=== PATIENT | male | born 1960 | race Caucasian/White ===

== ENCOUNTER 2017-03-15 14:37 | Emergency (ER) | payer BC ==
--- NOTE | 2017-03-15 15:48 | EDM.PDOC ---
ED HPI GENERAL MEDICAL PROBLEM - General Chief Complaint: Upper Extremity Injury/Pain Stated Complaint: LEFT SHOULDER/BACK PAIN Time Seen by Provider: 03/15/17 15:35 Source of Information: Reports: Patient History Limitations: Reports: No Limitations - History of Present Illness INITIAL COMMENTS - FREE TEXT/NARRATIVE: 56-year-old male presents to the ED with recurrent left precordial chest pains that radiate into his axillary area. States the pain is been coming and going for the last 2 years but worse the last couple of days. Denies any recent falls or injuries or previous fractured ribs to his knowledge. Aware of it when he breathes deeply. Aspirin last night seemed to help a good deal and Motrin this morning took away about 60% of the discomfort. It is more of a deep aching pain versus sharp and stabbing. He has not been recently ill with any upper respiratory tract infection or severe cough. Denies any fever or chills. Has no known heart disease or other issues. Denies cough or sputum production. Denies ever having tuberculosis. Onset: Unknown/Unsure Onset Date: 03/14/17 (More aware of the left anterior chest discomfort yesterday and back axillary discomfort this morning.) Duration: Day(s): Location: Reports: Chest (Left anterior chest and left axilla left upper back.) Quality: Reports: Ache, Burning, Dull. Denies: Sharp, Stabbing Severity: Moderate (Dull ache when not moving. Aggravated by movement.) Improves with: Reports: Rest Worsens with: Reports: Other, Movement (Deep breathing coughing movement of the left upper extremity.) Context: Denies: Activity, Exercise, Lifting, Sick Contact, Trauma, Other Associated Symptoms: Reports: Chest Pain. 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 Both seem to help somewhat.) Left Shoulder Pain Score (Numeric/FACES): 5 - Related Data Allergies Allergy/AdvReac Type Severity Reaction Status Date / Time No Known Allergies Allergy Verified 03/15/17 14:46 Home Meds: Home Meds Diclofenac Sodium [Voltaren] 50 mg PO BID #16 tab.ec 03/15/17 [Rx] Prednisone [IJD: predniSONE] 20 mg PO BID #15 tab 03/15/17 [Rx] Past Medical History Cardiovascular History: Reports: High Cholesterol Social & Family History - Family History Cardiac: Reports: Hypertension - Tobacco Use Smoking Status *Q: Never Smoker - Caffeine Use Caffeine Use: Reports: None - Recreational Drug Use Recreational Drug Use: No - Living Situation & Occupation Occupation: Employed Review of Systems - Review of Systems Review Of Systems: See Below Constitutional: Denies: Chills, Diaphoresis, Fever, Weakness, Other Eyes: Denies: No Symptoms, Blindness, Drainage, Decreased Acuity Ears: Reports: No Symptoms Nose: Reports: No Symptoms Mouth/Throat: Reports: No Symptoms Respiratory: Reports: Other (Left precordial chest pain radiating to the left exit left off and on for 2 years.). Denies: Wheezing, Pleuritic Chest Pain, Cough, Sputum, Hemoptysis Cardiovascular: Reports: Chest Pain (See history of present illness). Denies: Edema, Irregular Heart Rate, Lightheadedness, Palpitations, Syncope, Other GI/Abdominal: Reports: No Symptoms Genitourinary: Reports: No Symptoms Musculoskeletal: Reports: No Symptoms Skin: Reports: No Symptoms Neurological: Reports: No Symptoms Psychiatric: Reports: No Symptoms ED EXAM, GENERAL - Physical Exam Exam: See Below Exam Limited By: No Limitations General Appearance: Alert, WD/WN, Anxious, Mild Distress Eye Exam: Bilateral Eye: Normal Inspection Throat/Mouth: Normal Inspection, Normal Lips, Normal Oropharynx Head: Atraumatic, Normocephalic Neck: Normal Inspection, Supple, Non-Tender, Full Range of Motion. No: Carotid Bruit, Lymphadenopathy (L), Lymphadenopathy (R), Thyromegaly Respiratory/Chest: No Respiratory Distress, Lungs Clear, Normal Breath Sounds, No Accessory Muscle Use, Other (Chest wall tenderness appreciated on palpation of the fourth and fifth ribs lateral clavicular line and anterior axillary line. Pain radiates into the posterior axilla under the latissimus dorsi muscle. ) Cardiovascular: Normal Peripheral Pulses, Regular Rate, Rhythm, No Edema, No Gallop, No Murmur Peripheral Pulses: 3+: Posterior Tibial (L), Posterior Tibial (R), Dorsalis Pedis (L), Dorsalis Pedis (R) GI/Abdominal: Normal Bowel Sounds, Soft, Non-Tender, No Organomegaly, No Abnormal Bruit, No Mass, Pelvis Stable Back Exam: Vertebral Tenderness (Mild tenderness of Percocet over the seventh rib head on the left side) Extremities: Normal Inspection (. Appears to have mild rib head subluxation in this area but no other muscle spasm was identified paraspinal he.), Normal Range of Motion, Non-Tender, No Pedal Edema Neurological: Alert, Oriented, CN II-XII Intact, Normal Cognition, Normal Gait Psychiatric: Normal Affect, Anxious Skin Exam: Warm, Dry, Intact, Normal Color, No Rash EKG INTERPRETATION EKG Date: 03/15/17 Time: 16:00 Rhythm: Other (First-degree AV block.) Rate (Beats/Min): 69 P-Wave: Present (First-degree AV block.) QRS: Normal ST-T: Other (Diffuse early repolarization pattern.) EKG Interpretation Comments: Borderline ECG Course - Vital Signs Last Recorded V/S: Last Vital Signs Temp 36.4 C 03/15/17 14:47 Pulse 71 03/15/17 14:47 Resp 16 03/15/17 14:47 BP 176/96 H 03/15/17 14:47 Pulse Ox 100 03/15/17 14:47 - Orders/Labs/Meds Meds: Medications Discontinued Medications Generic Name Dose Route Start Last Admin Trade Name Freq PRN Reason Stop Dose Admin Prednisone 20 mg 03/15/17 16:53 03/15/17 17:06 Prednisone PO 03/15/17 16:54 20 mg ONETIME ONE Administration - Radiology Interpretation Free Text/Narrative:: 56-year-old male of -[place] ancestry presents to the ED with a recurrence of left upper anterior chest wall pain as well as pain rating to his left upper back. States he's had this type of discomfort off and on for the better part of 2 years and it comes and goes. Been bothering him again the last 2 days. Started left anterior chest last night radiating to the Lt axilla. Examination reveals chest wall tenderness particular a fourth and fifth ribs left anterior lateral chest wall and rib head subluxation at this T7 level in his back. The characteristic of the pain coming and going suggest a neurogenic source of pain like costochondral neuritis. Plan ECG and one view chest x-ray to be obtained. - Re-Assessments/Exams Free Text/Narrative Re-Assessment/Exam: 03/15/17 16:55: ECG showed no evidence of ischemia. First-degree AV block present with rate of 69/m with a diffuse early repolarization pattern. Chest x- ray portably reveals normal cardiac silhouette and clear lung noe. Patient reassured that chest pain is chest wall in origin. He will be treated with prednisone 20 mg twice a day for 5 days breakfast and supper and then once daily in the morning only for another 5 days. Anti-inflammatory will be Voltaren 50 mg twice a day for the next 10 days. Patient voiced expect gradual improvement over the next 72 hours. Follow-up with personal care physician if any further problems occur. We'll also seek out chiropractic manipulation of rib head subluxation at approximately T7 his left upper back. Departure - Departure Time of Disposition: 16:52 Disposition: Home, Self-Care 01 Condition: Fair Clinical Impression: Non-cardiac chest pain, Left-sided chest wall pain - Discharge Information Prescriptions: Diclofenac Sodium [Voltaren] 50 mg PO BID #16 tab.ec Prednisone [IJD: predniSONE] 20 mg PO BID #15 tab Instructions: Chest Wall Pain, [id number], Nonspecific Chest Pain, Easy-to- Read Referrals: Leilani Rodriguez DO [Primary Care Provider] - Forms: ED Department Discharge Additional Instructions: Evaluation the emergency room today in regards to left-sided precordial chest pain which radiates into the left armpit and upper back on the left side. History this pain has come and gone in the past over the last 2 years on several occasions but much worse the last 2 days. Reveals localized chest wall tenderness to ribs 4 and 5 on the left chest wall particularly in the front of the armpit or axillary area. This indicates pain is chest wall in origin. ECG revealed no signs of heart related illness. Chest x-ray is also completely normal with no abnormalities of the lungs or lung lining or the ribs themselves identified. Treatment is therefore Deltasone or prednisone 20 mg with breakfast and supper for 5 days and then once in the morning again only for 5 days. Voltaren 50 mg twice daily with breakfast and supper to relieve pain and inflammation of the chest wall. Prednisone was started in the emergency department today and you would not need another dose until tomorrow morning. You could still use ibuprofen 600 mg every 6 hours to relieve pain and inflammation essentially can grape picker her prescription for Voltaren tomorrow. Also identified a rib head that's not in the right position or what we call subluxed mildly dislocated anterior left upper back at thoracic 7 level. Suggest follow-up with a chiropractor in this regard. It is certainly call Dr. Dewey Heath`s office at [phone]. He is one of the chiropractors in [facility] that would could easily a gesture rib head and relieve your upper back pain discomfort.
[2017-03-15] MEDS ORDERED: predniSONE 20 MG Tab PO ONE (16:53)
--- NOTE | 2017-03-16 07:35 | CR ---
Chest: Portable view of the chest was obtained. Comparison: No prior chest x-ray. Heart size and mediastinum are normal. Lungs are clear. Bony structures are grossly intact. Impression: 1. Nothing acute is identified on portable chest x-ray. Diagnostic code #1
== END 2017-03-15 17:20 | disposition home or self-care (01) ==
LOC: JD.ED 14:37
DX: R07.89 Other chest pain (principal); E78.00 Pure hypercholesterolemia, unspecified
CPT/HCPCS: 71045; 93005; 99283; A9270; 93010

== ENCOUNTER 2018-07-04 15:04 | Emergency (ER) | payer BC ==
--- NOTE | 2018-07-04 15:32 | EDM.PDOC ---
ED HPI GENERAL MEDICAL PROBLEM - General Chief Complaint: Back Pain or Injury Stated Complaint: BACK PAIN Time Seen by Provider: 07/04/18 15:09 Source of Information: Reports: Patient, RN Notes Reviewed History Limitations: Reports: No Limitations - History of Present Illness INITIAL COMMENTS - FREE TEXT/NARRATIVE: Patient is a 57-year-old male who presents to the ED for the evaluation of lower back pain. The patient notes that this started roughly Thursday, this is located on the left lumbar portion of his back. He denies any radiation down his left leg at this time. He states that when he moves in a certain fashion, he has sharp shooting pains into his back like someone is stabbing him with a knife. He states that his gait and movements have become very slow so he does not aggravate the injury. The patient notes that he does do a lot of lifting at work, and is not really know how he initially injured the back. The patient took 400 mg of ibuprofen this morning, and at 12 PM today. He would rate his pain at a 8 out of 10 today. Patient states that his primary care provider is Dr. Da Silva. Left Back Pain Score (Numeric/FACES): 8 - Related Data Allergies Allergy/AdvReac Type Severity Reaction Status Date / Time No Known Allergies Allergy Verified 03/15/17 14:46 Home Meds: Home Meds Ibuprofen 600 mg PO Q6H #60 tablet 07/04/18 [Rx] Orphenadrine [Norflex] 100 mg PO BID PRN #20 tab 07/04/18 [Rx] Past Medical History Cardiovascular History: Reports: High Cholesterol - Past Surgical History GI Surgical History: Reports: Appendectomy Social & Family History - Family History Cardiac: Reports: Hypertension - Tobacco Use Smoking Status *Q: Never Smoker - Caffeine Use Caffeine Use: Reports: Tea - Recreational Drug Use Recreational Drug Use: No - Living Situation & Occupation Occupation: Employed ED ROS GENERAL - Review of Systems Review Of Systems: See Below Constitutional: Reports: No Symptoms HEENT: Reports: No Symptoms Respiratory: Reports: No Symptoms Cardiovascular: Reports: No Symptoms Endocrine: Reports: No Symptoms GI/Abdominal: Reports: No Symptoms : Reports: No Symptoms Musculoskeletal: Reports: Back Pain (L lower back pain) Skin: Reports: No Symptoms Neurological: Denies: Numbness, Tingling Psychiatric: Reports: No Symptoms Hematologic/Lymphatic: Reports: No Symptoms ED EXAM,LOWER BACK PAIN/INJURY - Physical Exam Exam: See Below Exam Limited By: No Limitations General Appearance: Alert, WD/WN, No Apparent Distress Respiratory/Chest: No Respiratory Distress, Lungs Clear, Normal Breath Sounds, No Accessory Muscle Use, Chest Non-Tender Cardiovascular: Normal Peripheral Pulses, Regular Rate, Rhythm, No Murmur GI/Abdominal: Normal Bowel Sounds, Soft, Non-Tender Back Exam: Normal Inspection, Decreased Range of Motion (Due to pain, while patient was rolling over in bed for examination, he winced when he was twisting his spine. He then log rolled onto his belly to have his back examined.), Muscle Spasm (Left lower back). No: CVA Tenderness (L), CVA Tenderness (R) Extremities: Normal Inspection, Normal Range of Motion, Normal Capillary Refill Neurological: Alert, Normal Mood/Affect, Normal Dorsiflexion, Normal Plantar Flexion, Normal Gait, Normal Reflexes, Oriented x 3. No: Straight Leg Raise (L) , Straight Leg Raise (R), Saddle Anesthesia Psychiatric: Normal Affect, Normal Mood Skin Exam: Warm, Dry, Intact, Normal Color, No Rash Course - Vital Signs Last Recorded V/S: Last Vital Signs Temp 97.4 F 07/04/18 15:10 Pulse 55 L 07/04/18 15:10 Resp 20 07/04/18 15:10 BP 164/94 H 07/04/18 15:10 Pulse Ox 100 07/04/18 15:10 - Orders/Labs/Meds Orders: Active Orders 24 hr Category Date Time Status Lumbar Spine 2 or 3V [CR] Stat Exams 07/04/18 15:42 Ordered Meds: Medications Discontinued Medications Generic Name Dose Route Start Last Admin Trade Name Chante PRN Reason Stop Dose Admin Ketorolac Tromethamine 30 mg 07/04/18 15:42 07/04/18 15:50 Toradol IM 07/04/18 15:43 30 mg ONETIME ONE Administration Orphenadrine Citrate 100 mg 07/04/18 15:42 07/04/18 15:50 Norflex PO 07/04/18 15:43 100 mg ONETIME ONE Administration - Re-Assessments/Exams Free Text/Narrative Re-Assessment/Exam: 07/04/18 15:46 Patient presents to the ED for the evaluation of lower back pain. I have ordered lumbar x-rays, 30 mg IM Toradol and 100 mg PO Norflex for initial management. 07/04/18 16:33 Patient's lumbar x-rays are done, these were reviewed by myself and Dr. Celeste. There does not appear to be any acute fracture of his lumbar spine at this time. I we will provide the patient with prescription for Norflex, and other conservative management at this time. We'll recommend that he follow-up with Dr. Da Silva and roughly 1 week's time if the pain is not much better. Departure - Departure Time of Disposition: 16:34 Disposition: Home, Self-Care 01 Condition: Fair Clinical Impression: Lower back pain Qualifiers: Chronicity: acute Back pain laterality: left Sciatica presence: without sciatica Qualified Code(s): M54.5 - Low back pain - Discharge Information *PRESCRIPTION DRUG MONITORING PROGRAM REVIEWED*: No *COPY OF PRESCRIPTION DRUG MONITORING REPORT IN PATIENT LORAINE: No Instructions: Back Injury Prevention, [id number], Musculoskeletal Pain Referrals: Alley Da Silva MD [Primary Care Provider] - Forms: ED Department Discharge, ED Return to Work/School Form Additional Instructions: You have been evaluated in the ED for your left lower back pain. Your x-ray demonstrated no acute fracture at this ED visit. Please use ice/heat as tolerated to the affected area. You may take tylenol 500 mg or ibuprofen 600mg q6 hrs for pain relief. Please do so until you have a tolerable level of pain with activity. Do not exceed 4000mg tylenol, Do not exceed 3200mg ibuprofen in a 24 hour time period. You have been provided with a prescription for Norflex, please take one tab 2 times daily for muscle spasms. This has been electronically prescribed to [facility] located on [place]. Please return to ED if your symptoms should change or worsen. - My Orders Last 24 Hours: My Active Orders 07/04/18 15:42 Lumbar Spine 2 or 3V [CR] Stat - Assessment/Plan Last 24 Hours: My Active Orders 07/04/18 15:42 Lumbar Spine 2 or 3V [CR] Stat
[2018-07-04] MEDS ORDERED: Orphenadrine 100 MG Tab.ER PO ONE (15:42)
[2018-07-04] MEDS ORDERED: Ketorolac 30 MG/ML SDV IM ONE (15:42)
--- NOTE | 2018-07-05 06:34 | CR ---
Lumbar spine: AP, lateral and coned down lateral views centered to the lumbosacral junction were obtained. Vertebral body heights and disc spaces are maintained. Very minimal scattered endplate osteophytes are seen. Pedicles as well as visualized transverse and spinous processes are intact. No subluxation or fracture is seen. Impression: 1. Minimal scattered endplate osteophytes. 2. Three-view lumbar spine study is otherwise unremarkable. Diagnostic code #2
== END 2018-07-04 17:17 | disposition home or self-care (01) ==
LOC: JD.ED 15:04
DX: M54.5 Low back pain (principal); Z90.49 Acquired absence of other specified parts of digestive tract
CPT/HCPCS: 72100; 96372; 99283; A9270; J1885

== ENCOUNTER 2020-06-05 06:20 | Emergency (ER) | payer BC, OTHER ==
[2020-06-05] MEDS ORDERED: Orphenadrine 100 MG Tab.ER PO STA (06:53)
[2020-06-05] MEDS ORDERED: Ibuprofen 600 MG Tab PO ONE (06:53)
--- NOTE | 2020-06-05 07:00 | EDM.PDOC ---
ED HPI GENERAL MEDICAL PROBLEM - General Chief Complaint: Back Pain or Injury Stated Complaint: RT SHOULDER/BACK PAIN Time Seen by Provider: 06/05/20 06:33 Source of Information: Reports: Patient History Limitations: Reports: No Limitations - History of Present Illness INITIAL COMMENTS - FREE TEXT/NARRATIVE: Mr. Yañez is a very pleasant 59-year-old gentleman who now presents the ED after developing lower left back pain after he picked something heavy up at work this morning. He states that the pain does not radiate. He states that it is constant, but made worse with movement. He is most comfortable if supine. The patient states that he believes he did the same thing to his back about 1 year ago, but does not recall what sort of treatment he received. The patient did not take any [id number] or home remedies prior to coming to the ED. Here in the ED, the patient's initial BP is found to be elevated at 177/101, with slight bradycardia of 56 bpm. He is afebrile, saturating 98% on room air. He does not appear to be in any acute distress while lying supine on the gurney. Prior to this morning, the patient denies having a recent fever, chills, sore throat, ear pain, nasal or sinus congestion, cough, dyspnea, chest pain, palpitations, nausea, vomiting, constipation, diarrhea, abdominal pain, urinary symptoms, recent weight gain or weight loss, recent bloody bowel movements or black bowel movements, recent joint aches, headaches, or rashes. The patient's PCP is DEX Rogers. Right Lower Back Pain Score (Numeric/FACES): 8 - Related Data Allergies Allergy/AdvReac Type Severity Reaction Status Date / Time No Known Allergies Allergy Verified 06/05/20 06:30 Home Meds: Home Meds Orphenadrine [Norflex] 1 tab PO Q12H PRN #14 tab.er 06/05/20 [Rx] Past Medical History Cardiovascular History: Reports: High Cholesterol (untreated) - Past Surgical History GI Surgical History: Reports: Appendectomy Social & Family History - Tobacco Use Tobacco Use Status *Q: Never Tobacco User - Caffeine Use Caffeine Use: Reports: Tea - Alcohol Use Alcohol Use History: No - Recreational Drug Use Recreational Drug Use: No - Living Situation & Occupation Living situation: Reports: (), Alone Occupation: Employed ([employer]) ED ROS GENERAL - Review of Systems Review Of Systems: Comprehensive ROS is negative, except as noted in HPI. ED EXAM,LOWER BACK PAIN/INJURY - Physical Exam Exam: See Below Exam Limited By: No Limitations General Appearance: Alert, WD/WN, No Apparent Distress (had pain and needed assistance to sit up) Eye Exam: Bilateral Eye: EOMI, Normal Inspection Ears: Normal External Exam, Hearing Grossly Normal Nose: Normal Inspection Throat/Mouth: Normal Inspection, Normal Lips, Normal Voice, No Airway Compromise Head: Atraumatic, Normocephalic Neck: Normal Inspection, Full Range of Motion Respiratory/Chest: No Respiratory Distress, Lungs Clear, Normal Breath Sounds, No Accessory Muscle Use Cardiovascular: Normal Peripheral Pulses, Regular Rate, Rhythm, No Edema, No Gallop, No JVD, No Murmur, No Rub GI/Abdominal: Normal Bowel Sounds, Soft, Non-Tender, No Organomegaly, No Distention, No Abnormal Bruit, No Mass Back Exam: Normal Inspection (No visible abnormality to the patient's back, such as swelling, erythema, ecchymosis, or abrasion), Full Range of Motion, Muscle Spasm (Left lumbar paraspinal musculature only), Paraspinal Tenderness. No: CVA Tenderness (L), CVA Tenderness (R), Vertebral Tenderness Extremities: Normal Inspection, Normal Range of Motion, No Pedal Edema, Normal Capillary Refill Neurological: Alert, Normal Dorsiflexion, Normal Plantar Flexion, No Motor/Sensory Deficits, Oriented x 3 Psychiatric: Normal Affect Skin Exam: Warm, Dry, Intact, Normal Color, No Rash Course - Vital Signs Last Recorded V/S: Last Vital Signs Temp 36.1 C 06/05/20 06:30 Pulse 56 L 06/05/20 06:30 Resp 15 06/05/20 06:30 BP 177/101 H 06/05/20 06:30 Pulse Ox 98 06/05/20 06:30 - Orders/Labs/Meds Meds: Medications Discontinued Medications Generic Name Dose Route Start Last Admin Trade Name Freq PRN Reason Stop Dose Admin Ibuprofen 600 mg 06/05/20 06:53 06/05/20 07:00 Ibuprofen 600 Mg Tab PO 06/05/20 06:54 600 mg ONETIME ONE Administration Orphenadrine Citrate 100 mg 06/05/20 06:53 06/05/20 06:59 Orphenadrine 100 Mg Tab.Er PO 06/05/20 06:54 100 mg ONETIME STA Administration - Re-Assessments/Exams Free Text/Narrative Re-Assessment/Exam: 06/05/20 06:53 As above, the patient appears to have developed a muscle spasm in his left lumbar paraspinous musculature when he lifted something at work this morning. There is no radiation of the pain to suggest radiculopathy. The patient will be started on Norflex and ibuprofen here in the ED, and I will submit a prescription for Norflex to the pharmacy of his choice. I will also provide for him a note for work to be off for a few days, during which time I would like him to stay active by walking and stretching. Departure - Departure Time of Disposition: 06:54 Disposition: Home, Self-Care 01 Condition: Good Clinical Impression: Back muscle spasm - Discharge Information *PRESCRIPTION DRUG MONITORING PROGRAM REVIEWED*: Not Applicable *COPY OF PRESCRIPTION DRUG MONITORING REPORT IN PATIENT LORAINE: Not Applicable Prescriptions: Orphenadrine [Norflex] 1 tab PO Q12H PRN #14 tab.er PRN Reason: Muscle Spasm Instructions: Muscle Cramps and Spasms Referrals: Regine Grajeda PA-C [Primary Care Provider] - Forms: ED Department Discharge, ED Return to Work/School Form Additional Instructions: You were seen in the emergency room after developing left back pain after lifting something heavy at work. Based on your history and physical examination, you have most likely developed a muscle spasm of your lower left back muscles. You have been started on the muscle relaxant Norflex, and a prescription for Norflex has been sent to the [facility], located at [address] [place] [address]. Take 1 tablet of Norflex every 12 hours, starting this evening, 06/05/2020, as prescribed. Norflex works well with [id number] ibuprofen. We recommend that you take 3 tablets of ibuprofen (600 mg) up to every 8 hours, with food, as needed for discomfort. A note to be off work until 06/08/2020, has been provided to you. During that time, we recommend that you stay active. Swimming is best, but walking is very good, as well. We also recommend that you stretch. If your symptoms have not significantly improved before Thursday, please follow-up with your PCP, DEX Rogers. If any other problems, please do not hesitate to return to the ER. Sepsis Event Note (ED) - Evaluation Sepsis Screening Result: No Definite Risk - Focused Exam Vital Signs: Vital Signs Temp Pulse Resp BP Pulse Ox 06/05/20 06:30 36.1 C 56 L 15 177/101 H 98
== END 2020-06-05 07:20 | disposition home or self-care (01) ==
LOC: JD.ED 06:20
DX: M62.830 Muscle spasm of back (principal)
CPT/HCPCS: 99283; A9270

== ENCOUNTER 2020-09-29 14:01 | Emergency (ER) | payer BC, OTHER ==
[2020-09-29] MEDS ORDERED: Magnesium Citrate Solution 296 ML Bottle PO ONE (14:40)
--- NOTE | 2020-09-29 14:41 | EDM.PDOC ---
ED HPI GENERAL MEDICAL PROBLEM - General Chief Complaint: General Stated Complaint: RECTAL ABSCESS Time Seen by Provider: 09/29/20 14:11 Source of Information: Reports: Patient, RN Notes Reviewed History Limitations: Reports: No Limitations - History of Present Illness INITIAL COMMENTS - FREE TEXT/NARRATIVE: Patient is a 60-year-old male presenting to the emergency department with concerns of possible abscess in his rectum. He reports that he has been constipated for the last 3 days. On Thursday he first noticed this. States that it "popped out "when he was trying to have a bowel movement. It then went back inside his rectum and then today while he was trying to have a bowel movement and it came out of the rectum again. He describes it as painful. He has had no bleeding. States he is normally regular with his bowel movements but for the last 3 days he has been having difficulty going. He did go a small amount today and states that the stool was hard. He has been using Preparation H which she states does help. Denies any abdominal pain, nausea, or vomiting. Rectal Pain Score (Numeric/FACES): 9 - Related Data Allergies Allergy/AdvReac Type Severity Reaction Status Date / Time No Known Allergies Allergy Verified 06/05/20 06:30 Home Meds: Home Meds Hydrocortisone [Anusol-Hc] 30 gm TP BID #1 cream..g. 09/29/20 [Rx] traMADol [Ultram] 50 mg PO ASDIRECTED 09/29/20 [History] Past Medical History Cardiovascular History: Reports: High Cholesterol - Past Surgical History GI Surgical History: Reports: Appendectomy Social & Family History - Family History Cardiac: Reports: Hypertension - Tobacco Use Tobacco Use Status *Q: Never Tobacco User - Caffeine Use Caffeine Use: Reports: Tea - Recreational Drug Use Recreational Drug Use: No - Living Situation & Occupation Living situation: Reports: (), Alone Occupation: Employed ([employer]) ED ROS GENERAL - Review of Systems Review Of Systems: Comprehensive ROS is negative, except as noted in HPI. ED EXAM, GENERAL - Physical Exam Exam: See Below Exam Limited By: No Limitations General Appearance: Alert, WD/WN, No Apparent Distress Respiratory/Chest: No Respiratory Distress, Lungs Clear, Normal Breath Sounds, No Accessory Muscle Use, Chest Non-Tender Cardiovascular: Normal Peripheral Pulses, Regular Rate, Rhythm, No Edema, No Gallop, No JVD, No Murmur, No Rub GI/Abdominal: Normal Bowel Sounds, Soft, Non-Tender, No Organomegaly, No Distention, No Abnormal Bruit, No Mass Rectal (Males) Exam: Hemorrhoids (8 o'clock position. Small area of possible thrombosis. No bleeding.) Course - Vital Signs Last Recorded V/S: Last Vital Signs Temp Pulse 58 L 09/29/20 14:22 Resp 20 09/29/20 14:22 BP 164/87 H 09/29/20 14:22 Pulse Ox 99 09/29/20 14:22 - Orders/Labs/Meds Meds: Medications Discontinued Medications Generic Name Dose Route Start Last Admin Trade Name Freq PRN Reason Stop Dose Admin Magnesium Citrate 296 ml 09/29/20 14:40 09/29/20 14:50 Magnesium Citrate Solution 296 Ml Bottle PO 09/29/20 14:41 296 ml ONETIME ONE Administration - Re-Assessments/Exams Free Text/Narrative Re-Assessment/Exam: Patient is a 60-year-old male presenting to the emergency department with complaints of a painful lump protruding from his rectum. On exam, patient does have a thrombosed hemorrhoid at the 8 o'clock position. Reports that he is constipated. Patient will be provided a bottle of magnesium citrate to help with his constipation. Discussed that he should avoid straining with his bowel movements as this will worsen the hemorrhoid. Recommend Anusol HC twice daily for the next 7 days. He should use a stool softener daily after today. Discussed that if discomfort continues, he should follow-up with his primary care provider to discuss possible referral to general surgery. Discharge instructions as documented. Departure - Departure Time of Disposition: 14:37 Disposition: Home, Self-Care 01 Condition: Good Clinical Impression: Acute hemorrhoid Constipation Qualifiers: Constipation type: unspecified constipation type Qualified Code(s): K59.00 - Constipation, unspecified - Discharge Information *PRESCRIPTION DRUG MONITORING PROGRAM REVIEWED*: No *COPY OF PRESCRIPTION DRUG MONITORING REPORT IN PATIENT LORAINE: No Prescriptions: Hydrocortisone [Anusol-Hc] 30 gm TP BID #1 cream..g. Instructions: Hemorrhoids, [id number], Constipation, Adult Referrals: Regine Grajeda PA-C [Primary Care Provider] - Forms: ED Department Discharge Additional Instructions: You were seen in the emergency department today for evaluation with regards to the painful area in your rectum that occurred with constipation. On exam, you do have a hemorrhoid which is the cause of your discomfort. These worsen with straining and attempting to have a bowel movement. You have been sent home with a bottle of magnesium citrate. Recommend that you drink this. This will resolve your constipation. Avoid straining with bowel movements as this will only worsen the hemorrhoid. Recommend that she begin taking a Colace which is a stool softener daily. If you still difficulty having bowel movements, you may use [id number] MiraLAX. Purchase Anusol HC [id number] and apply this to the hemorrhoid twice daily for 7 days. If symptoms fail to improve over the next few days, recommend follow-up with your primary care provider. Return to ER as needed. Sepsis Event Note (ED) - Evaluation Sepsis Screening Result: No Definite Risk
== END 2020-09-29 14:50 | disposition home or self-care (01) ==
LOC: JD.ED 14:01
DX: K64.5 Perianal venous thrombosis (principal); K59.00 Constipation, unspecified
CPT/HCPCS: 99283; A9270

== ENCOUNTER 2021-01-06 02:24 | Emergency (ER) | payer BC ==
[2021-01-06] MEDS ORDERED: Lactated Ringers 1,000 ML IV ONE (03:12)
--- NOTE | 2021-01-06 03:23 | EDM.PDOC ---
ED HPI GENERAL MEDICAL PROBLEM - General Chief Complaint: General Stated Complaint: COVID+ Time Seen by Provider: 01/06/21 03:21 Source of Information: Reports: Patient History Limitations: Reports: No Limitations - History of Present Illness INITIAL COMMENTS - FREE TEXT/NARRATIVE: Patient is 60-year-old male who tested positive for Covid on January 03. He reports since then he has been having symptoms such as severe fatigue, body aches, loss of appetite. Patient denies any associated difficulty breathing, nausea, vomiting, diarrhea. Patient has been taken Tylenol with minimal relief. Patient is not vaccinated against COVID-19. No other interventions performed prior to arrival. He was told about the antibiotic infusion but is not decided whether he is going to take it or not. Patient states he had labs done on as well. He said he might be diabetic. - Related Data Allergies Allergy/AdvReac Type Severity Reaction Status Date / Time No Known Allergies Allergy Verified 01/06/21 02:47 Home Meds: Home Meds hydrOXYzine HCL [Atarax] 25 mg PO BEDTIME #7 tab 01/06/21 [Rx] Past Medical History Cardiovascular History: Reports: High Cholesterol - Infectious Disease History Infectious Disease History: Reports: Novel Coronavirus - Past Surgical History GI Surgical History: Reports: Appendectomy Social & Family History - Family History Family Medical History: No Pertinent Family History Cardiac: Reports: Hypertension - Tobacco Use Tobacco Use Status *Q: Never Tobacco User Second Hand Smoke Exposure: No - Caffeine Use Caffeine Use: Reports: Tea - Recreational Drug Use Recreational Drug Use: No - Living Situation & Occupation Living situation: Reports: (), Alone Occupation: Employed ([employer]) ED ROS GENERAL - Review of Systems Review Of Systems: See Below Free Text/Narrative/Comment: In addition to that documented in the HPI above, the additional ROS was obtained: Constitutional: Denies fevers or chills Eyes: Denies vision changes ENMT: Denies sore throat CV: Denies chest pain Resp: Denies SOB GI: Denies vomiting or diarrhea : Denies painful urination MSK: Denies recent trauma Skin: Denies new rashes Neuro: Denies new numbness or tingling or weakness Endocrine: Denies unexpected weight loss Heme: Denies bleeding disorders ED EXAM, GENERAL - Physical Exam Exam: See Below Free Text/Narrative:: I have reviewed the triage vital signs Const: Well nourished, well developed, appears stated age Eyes: no conjunctival injection HENT: No signs of trauma or swelling, Neck supple without meningismus CV: Regular Rate Rhythm, Warm, well-perfused extremities RESP: Unlabored respiratory effort MSK: No gross deformities appreciated Skin: Warm, dry. No rashes Neuro: Alert, outside repairer special II-XII grossly intact. Sensation and motor function of extremities grossly intact. Psych: Appropriate mood and affect. Course - Vital Signs Last Recorded V/S: Last Vital Signs Temp 37.1 C 01/06/21 02:43 Pulse 86 01/06/21 02:43 Resp 20 01/06/21 02:43 BP 148/88 H 01/06/21 02:43 Pulse Ox 94 L 01/06/21 02:43 - Orders/Labs/Meds Labs: Laboratory Tests 01/06/21 01/06/21 Range/Units 03:18 03:18 WBC 4.27 (4.23-9.07) K/mm3 RBC 5.57 (4.63-6.08) M/mm3 Hgb 14.2 (13.7-17.5) gm/dl Hct 43.0 (40.1-51.0) % MCV 77.2 L (79.0-92.2) fl MCH 25.5 L (25.7-32.2) pg MCHC 33.0 (32.2-35.5) g/dl RDW Std Deviation 43.0 (35.1-43.9) fL Plt Count 162 L (163-337) K/mm3 MPV 9.5 (9.4-12.3) fl Neut % (Auto) 77.1 H (34.0-67.9) % Lymph % (Auto) 19.2 L (21.8-53.1) % Rogers % (Auto) 3.5 L (5.3-12.2) % Eos % (Auto) 0 L (0.8-7.0) Baso % (Auto) 0.0 L (0.1-1.2) % Neut # (Auto) 3.29 (1.78-5.38) K/mm3 Lymph # (Auto) 0.82 L (1.32-3.57) K/mm3 Rogers # (Auto) 0.15 L (0.30-0.82) K/mm3 Eos # (Auto) 0.00 L (0.04-0.54) K/mm3 Baso # (Auto) 0.00 L (0.01-0.08) K/mm3 Sodium 137 (136-145) mEq/L Potassium 3.7 (3.5-5.1) mEq/L Chloride 100 (98-107) mEq/L Carbon Dioxide 26 (21-32) mEq/L Anion Gap 14.7 (5-15) BUN 18 (7-18) mg/dL Creatinine 1.4 H (0.7-1.3) mg/dL Est Cr Clr Drug Dosing 59.01 mL/min Estimated GFR (MDRD) > 60 (>60) mL/min BUN/Creatinine Ratio 12.9 L (14-18) Glucose 110 H (70-99) mg/dL Calcium 8.4 L (8.5-10.1) mg/dL Total Bilirubin 0.6 (0.2-1.0) mg/dL AST 36 (15-37) U/L ALT 24 (16-63) U/L Alkaline Phosphatase 39 L (46-116) U/L C-Reactive Protein 14.3 H* (<1.0) mg/dL Total Protein 7.5 (6.4-8.2) g/dl Albumin 3.3 L (3.4-5.0) g/dl Globulin 4.2 gm/dL Albumin/Globulin Ratio 0.8 L (1-2) Meds: Medications Discontinued Medications Generic Name Dose Route Start Last Admin Trade Name Freq PRN Reason Stop Dose Admin Lactated Ringer's 1,000 mls @ 1,000 mls/hr 01/06/21 03:12 01/06/21 03:28 Ringers, Lactated IV 01/06/21 04:11 1,000 mls/hr .BOLUS ONE Administration Departure - Departure Time of Disposition: 04:06 Disposition: Home, Self-Care 01 Clinical Impression: COVID-19 - Discharge Information Prescriptions: hydrOXYzine HCL [Atarax] 25 mg PO BEDTIME #7 tab Instructions: COVID-19 Referrals: PCP,None [Primary Care Provider] - Forms: ED Department Discharge Sepsis Event Note (ED) - Evaluation Sepsis Screening Result: No Definite Risk - Focused Exam Vital Signs: Vital Signs Temp Pulse Resp BP Pulse Ox 01/06/21 02:43 37.1 C 86 20 148/88 H 94 L - Assessment/Plan Assessment:: Patient is a 60-year-old male presented to the emergency room with COVID-19. Patient not in respiratory distress or hypoxic. Laboratory studies demonstrate elevated CRP but otherwise no significant abnormalities. He did receive some IV fluids while in the emergency room. At this point, there is no indication for admission or steroid use. There is no Regeneron available in the emergency room and I recommend he follow-up with his primary care physician for possible outpatient treatment with this. Return precautions discussed as usual. Patient agrees with plan of care.
== END 2021-01-06 04:45 | disposition home or self-care (01) ==
LOC: JD.ED 02:24
DX: U07.1 COVID-19 (principal)
CPT/HCPCS: 36415; 80053; 85025; 86140; 99284; J7120

== ENCOUNTER 2021-01-07 18:33 | Emergency (ER) | payer BC ==
[2021-01-07] MEDS ORDERED: Dexamethasone 4 MG Tab PO STA (19:26)
[2021-01-07] MEDS ORDERED: REMDESIVIR 200 MG in Sodium Chloride 0.9% 250 ML IV ONE (19:27)
--- NOTE | 2021-01-07 19:27 | EDM.PDOC ---
ED HPI GENERAL MEDICAL PROBLEM - General Chief Complaint: Respiratory Problem Stated Complaint: COUGH/COVID + Time Seen by Provider: 01/07/21 19:08 Source of Information: Reports: Patient, Old Records (ED visit 01/06/2021) History Limitations: Reports: No Limitations - History of Present Illness INITIAL COMMENTS - FREE TEXT/NARRATIVE: Mr. Yañez is a very pleasant 60-year-old gentleman who states that he developed fever, fatigue, generalized body aches, a dry mouth, and anorexia on 01/02/2021. He tested positive for the SARS-CoV-2 virus on , 01/03/2021. He was then seen in this ED early yesterday morning, 01/06/2021, complaining of fatigue, anorexia, and generalized body aches. He denied having dyspnea, nausea, vomiting, or diarrhea. He was found to be hemodynamically stable, afebrile, saturating 94% on room air. His physical exam was grossly unremarkable. Work-up included a CBC, CMP, and CRP. His CBC was remarkable for modest thrombocytopenia of 162,000, and was otherwise unremarkable. His CMP was remarkable for a Cr slightly elevated at 1.4, but with a BUN normal at 18, and slight hyperglycemia of 110, with the remainder of his CMP being unremarkable. His CRP was substantially elevated at 14.3. Unfortunately, no monoclonal antibodies were available, therefore the patient was discharged home without treatment, but with a prescription for hydroxyzine. The patient now returns the ED stating that he developed dyspnea, even at rest, last night, and a cough if he takes a deep breath. Still no fever, nausea, vomiting, or diarrhea. The patient states that he has taken acetaminophen on 2 occasions since the onset of his symptoms. Here in the ED tonight, the patient is found to be slightly tachypneic at 24 rpm, otherwise, he is hemodynamically stable, afebrile, saturating 85% on room air, 92 to 93% on 3 L of oxygen per nasal cannula. He appears to be relatively comfortable, but does not want to move or speak much, fearing taking a deep breath and inducing a cough. Prior to 01/03/2021, the patient denies having a recent fever, chills, sore throat, ear pain, nasal or sinus congestion, cough, dyspnea, chest pain, palpitations, nausea, vomiting, constipation, diarrhea, abdominal pain, urinary symptoms, recent weight gain or weight loss, recent bloody bowel movements or black bowel movements, recent joint aches, headaches, or rashes. The patient's PCP is DEX Rogers. He has not received a COVID vaccination, nor an influenza vaccination this season. - Related Data Allergies Allergy/AdvReac Type Severity Reaction Status Date / Time No Known Allergies Allergy Verified 01/07/21 18:43 Home Meds: Home Meds hydrOXYzine HCL [Atarax] 25 mg PO BEDTIME #7 tab 01/06/21 [Rx] Past Medical History Cardiovascular History: Reports: High Cholesterol (untreated) - Infectious Disease History Infectious Disease History: Reports: Novel Coronavirus (dx'd 01/03/2021) - Past Surgical History GI Surgical History: Reports: Appendectomy Social & Family History - Tobacco Use Tobacco Use Status *Q: Never Tobacco User - Caffeine Use Caffeine Use: Reports: Tea - Alcohol Use Alcohol Use History: No - Recreational Drug Use Recreational Drug Use: No - Living Situation & Occupation Living situation: Reports: (), Alone Occupation: Employed ([employer]) ED ROS GENERAL - Review of Systems Review Of Systems: Comprehensive ROS is negative, except as noted in HPI. ED EXAM, GENERAL - Physical Exam Exam: See Below Exam Limited By: No Limitations General Appearance: Alert, WD/WN, No Apparent Distress, Other (Speaks quietly, trying not to take a deep breath) Eye Exam: Bilateral Eye: EOMI, Normal Inspection Ears: Normal External Exam, Hearing Grossly Normal Nose: Normal Inspection Throat/Mouth: Normal Inspection, Normal Lips, Normal Voice, No Airway Compromise Head: Atraumatic, Normocephalic Neck: Normal Inspection, Full Range of Motion Respiratory/Chest: No Respiratory Distress, Lungs Clear, Normal Breath Sounds, No Accessory Muscle Use, Other (Taking deep breaths induces a cough). No: Decreased Breath Sounds, Crackles, Rhonchi, Wheezing, Stridor, Prolonged Expiration Cardiovascular: Normal Peripheral Pulses, Regular Rate, Rhythm, No Edema, No Gallop, No JVD, No Murmur, No Rub Peripheral Pulses: 3+: Radial (L), Radial (R) GI/Abdominal: Normal Bowel Sounds, Soft, Non-Tender, No Organomegaly, No Distention, No Abnormal Bruit, No Mass Back Exam: Normal Inspection, Full Range of Motion, NT Extremities: Normal Inspection, Normal Range of Motion, No Pedal Edema, Normal Capillary Refill Neurological: Alert, Oriented, Normal Cognition, No Motor/Sensory Deficits Psychiatric: Normal Affect Skin Exam: Warm, Dry, Intact, Normal Color, No Rash Course - Vital Signs Last Recorded V/S: Last Vital Signs Temp 36.4 C 01/07/21 18:40 Pulse 87 01/07/21 18:40 Resp 24 H 01/07/21 18:40 BP 119/70 01/07/21 18:40 Pulse Ox 85 L 01/07/21 18:40 - Orders/Labs/Meds Orders: Active Orders 24 hr Category Date Time Status Chest 1V Frontal [CR] Stat Exams 01/07/21 19:24 Taken Meds: Medications Discontinued Medications Generic Name Dose Route Start Last Admin Trade Name Chante PRN Reason Stop Dose Admin Dexamethasone 6 mg 01/07/21 19:26 01/07/21 19:54 Dexamethasone 4 Mg Tab PO 01/07/21 19:27 6 mg ONETIME STA Administration Remdesivir 200 mg/ Sodium 250 mls @ 250 mls/hr 01/07/21 19:27 01/07/21 19:56 Chloride IV 01/07/21 19:28 250 mls/hr ONETIME ONE Administration - Re-Assessments/Exams Free Text/Narrative Re-Assessment/Exam: 01/07/21 19:25 As above, the patient's CRP was significantly elevated at 14.3 yesterday morning. Unfortunately, monoclonal antibodies were not available. He now returns to the ED with dyspnea since last night and a cough if he takes a deep breath, in addition to his previous symptoms of fatigue, anorexia, and body aches. His oxygen saturation is 85% on room air, 92 to 93% on 3 L of oxygen per nasal cannula. Because he had blood work done just yesterday, I do not see a need to repeated at this time, however, I have ordered a portable chest x-ray. Because he is hypoxemic, he is no longer a candidate for treatment with monoclonal antibodies. He will be started on oral dexamethasone and IV remdesivir. No beds are available at this facility; we will seek a bed at an outside facility. 01/07/21 19:46 I spoke to Herber at [facility] at 19:41. They have one COVID bed available at their facility. The Hospitalist is currently busy - Herber will call me back once she is able to reach the Hospitalist. 01/07/21 19:[address] Bay, Hospitalist at [facility], at 19:52. She accepted the patient for transfer to their facility. The patient will be transported by ground ambulance. 01/07/21 20:02 Portable chest radiograph reviewed. The cardiac silhouette is within normal limits. No pulmonary vascular congestion. No pleural effusions seen on this AP view. There are bilateral hazy infiltrates, consistent with COVID pneumonia. Bibasilar atelectasis, worse on the right than the left. No pneumothorax. Formal read per the Radiologist pending. 01/07/21 20:08 Portable chest x-ray images pushed to [facility] at 20:08. Departure - Departure Time of Disposition: 20:02 Disposition: DC/Tfer to Acute Hospital 02 Condition: Fair Clinical Impression: COVID-19 - Discharge Information *PRESCRIPTION DRUG MONITORING PROGRAM REVIEWED*: Not Applicable *COPY OF PRESCRIPTION DRUG MONITORING REPORT IN PATIENT LORAINE: Not Applicable Referrals: Regine Grajeda PA-C [Physician Mock Up Assembler] - Forms: ED Department Discharge Sepsis Event Note (ED) - Evaluation Sepsis Screening Result: No Definite Risk - Focused Exam Vital Signs: Vital Signs Temp Pulse Resp BP Pulse Ox 01/07/21 18:40 36.4 C 87 24 H 119/70 85 L - My Orders Last 24 Hours: My Active Orders 01/07/21 19:24 Chest 1V Frontal [CR] Stat - Assessment/Plan Last 24 Hours: My Active Orders 01/07/21 19:24 Chest 1V Frontal [CR] Stat
--- NOTE | 2021-01-08 05:35 | CR ---
Chest: Portable view of the chest was obtained. Comparison: Prior chest x-ray of 03/15/17. Increased density is seen within both lung bases. Findings are most likely due to areas of atelectasis. Lungs otherwise are clear. Heart size is mildly enlarged. Upper mediastinum is normal. Bony structures show nothing acute. Impression: 1. Increased density within both lung bases having the appearance of atelectasis. 2. Heart is mildly enlarged. 3. No other acute abnormality is definitely appreciated. If symptoms persist, noncontrast chest CT could be obtained. Diagnostic code #2
== END 2021-01-07 20:35 ==
LOC: JD.ED 18:33
DX: U07.1 COVID-19 (principal)
CPT/HCPCS: 71045; 96365; 99285; J7050; J8540

== ENCOUNTER 2024-04-03 12:11 | Emergency (ER) | payer SELFPAY | END 2024-04-03 15:14 | disposition home or self-care (01) | LOC: JD.ED 12:11 | DX: K04.7 Periapical abscess without sinus (principal); M54.50 Low back pain, unspecified; I10 Essential (primary) hypertension; Z86.16 Personal history of COVID-19; Z90.49 Acquired absence of other specified parts of digestive tract; Z79.899 Other long term (current) drug therapy | CPT/HCPCS: 72100; 72100-26; 99283 ==

== ENCOUNTER 2024-12-12 01:07 | Emergency (ER) | payer BC, OTHER ==
[2024-12-12] MEDS ORDERED: Sodium Chloride 0.9% 10 ML Syringe FLUSH PRN (01:38)
[2024-12-12 01:40] LABS: BASOPHILS ABSOLUTE AUTO 0.0 K/mm3 (0.0-0.2); BASOPHILS PERCENT AUTO 0.2 % (0.0-1.0); EOSINOPHILS ABSOLUTE AUTO 0.0 K/mm3 (0.0-0.4); EOSINOPHILS PERCENT AUTO 0.9 % (0.0-6.0); IMMATURE GRAN ABSOLUTE AUTO 0.00 K/mm3 (0.00-0.05); IMMATURE GRAN PERCENT AUTO 0.0 % (0.0-0.4); LYMPHOCYTES ABSOLUTE AUTO 2.3 K/mm3 (1.0-4.8); LYMPHOCYTES PERCENT AUTO 52.4 % (24.0-44.0); MEAN PLATELET VOLUME 9.5 fl (9.4-12.4); MONOCYTES ABSOLUTE AUTO 0.5 K/mm3 (0.0-0.8); MONOCYTES PERCENT AUTO 11.9 % (0.0-8.0); NEUTROPHILS ABSOLUTE AUTO 1.5 K/mm3 (1.8-7.7); NEUTROPHILS PERCENT AUTO 34.6 % (41.0-71.0); NRBC ABSOLUTE 0.00 (0.00-0.02); NRBC PERCENT 0.0 % (0.0-0.2); PLATELET COUNT,PLT 228 K/mm3 (150-400); RED BLOOD CELL COUNT 5.18 M/mm3 (4.52-5.90); WHITE BLOOD CELL COUNT,WBC 4.45 K/mm3 (3.9-11.3)
[2024-12-12] MEDS: hydrALAZINE 20 MG/ML SDV IVPUSH ONE (01:41)
[2024-12-12 01:42] LABS: APPEARANCE,URINE CLEAR (Clear); GLUCOSE,URINE NEGATIVE (Negative); OCCULT BLOOD,URINE 2+ (Negative)
[2024-12-12 01:55] LABS: EPITHELIAL CELLS,URINE NOT SEEN /hpf (0-5)
[2024-12-12 02:02] LABS: A/G RATIO 0.9 (1-2); ALANINE AMINOTRANSFERASE,ALT 22.0 U/L (16-63); ASPARTATE AMNIOTRANSFERASE,AST 16.0 U/L (15-37); BILIRUBIN TOTAL 0.4 mg/dL (0.2-1.0); BLOOD UREA NITROGEN,BUN 15.0 mg/dL (7-18); CARBON DIOXIDE,CO2 31.0 mEq/L (21-32); CHLORIDE,CL 105.0 mEq/L (98-107); CREATININE 1.4 mg/dL (0.7-1.3); EST CRCL DRUG DOSING (CG) 56.03 mL/min; ESTIMATED GFR 56.0 mL/min (>60); GLUCOSE RANDOM 88.0 mg/dL (70-99); POTASSIUM,K 3.6 mEq/L (3.5-5.1); PROTEIN TOTAL,TP 7.3 g/dl (6.4-8.2); SODIUM,NA 142.0 mEq/L (136-145)
[2024-12-12] MEDS: Iopamidol 755 Mg/ML 100 ML Bottle IVPUSH ONE (02:32)
[2024-12-12] MEDS: Sodium Chloride 0.9% 10 ML Syringe FLUSH PRN (02:32)
== END 2024-12-12 03:46 | disposition home or self-care (01) ==
LOC: JD.ED 01:07
DX: I10 Essential (primary) hypertension (principal); E78.00 Pure hypercholesterolemia, unspecified; R79.89 Other specified abnormal findings of blood chemistry; Z79.82 Long term (current) use of aspirin; Z79.899 Other long term (current) drug therapy
CPT/HCPCS: 36415; 70450; 70496; 70498; 71045; 80053; 81001; 83735; 85025; 93005; 96361; 96374; 99285; J0360; J7030; Q9967

== ENCOUNTER 2024-12-12 06:20 | Emergency (ER) | payer SELFPAY ==
[2024-12-12] MEDS ORDERED: Sodium Chloride 0.9% 10 ML Syringe FLUSH PRN (06:37)
[2024-12-12] MEDS: Labetalol 100 MG/20 ML MDV IVPUSH ONE (06:44)
[2024-12-12] MEDS: LORazepam 2 MG/ML SDV IVPUSH ONE (06:46)
[2024-12-12 07:06] LABS: BASOPHILS ABSOLUTE AUTO 0.0 K/mm3 (0.0-0.2); BASOPHILS PERCENT AUTO 0.3 % (0.0-1.0); EOSINOPHILS ABSOLUTE AUTO 0.0 K/mm3 (0.0-0.4); EOSINOPHILS PERCENT AUTO 0.1 % (0.0-6.0); IMMATURE GRAN ABSOLUTE AUTO 0.01 K/mm3 (0.00-0.05); IMMATURE GRAN PERCENT AUTO 0.1 % (0.0-0.4); LYMPHOCYTES ABSOLUTE AUTO 3.2 K/mm3 (1.0-4.8); LYMPHOCYTES PERCENT AUTO 45.5 % (24.0-44.0); MEAN PLATELET VOLUME 10.0 fl (9.4-12.4); MONOCYTES ABSOLUTE AUTO 0.5 K/mm3 (0.0-0.8); MONOCYTES PERCENT AUTO 7.5 % (0.0-8.0); NEUTROPHILS ABSOLUTE AUTO 3.2 K/mm3 (1.8-7.7); NEUTROPHILS PERCENT AUTO 46.5 % (41.0-71.0); NRBC ABSOLUTE 0.00 (0.00-0.02); NRBC PERCENT 0.0 % (0.0-0.2); PLATELET COUNT,PLT 287 K/mm3 (150-400); RED BLOOD CELL COUNT 6.01 M/mm3 (4.52-5.90); WHITE BLOOD CELL COUNT,WBC 6.97 K/mm3 (3.9-11.3)
[2024-12-12 07:24] LABS: A/G RATIO 0.9 (1-2); ALANINE AMINOTRANSFERASE,ALT 25.0 U/L (16-63); ASPARTATE AMNIOTRANSFERASE,AST 20.0 U/L (15-37); BILIRUBIN TOTAL 0.4 mg/dL (0.2-1.0); BLOOD UREA NITROGEN,BUN 12.0 mg/dL (7-18); CARBON DIOXIDE,CO2 28.0 mEq/L (21-32); CHLORIDE,CL 102.0 mEq/L (98-107); CREATININE 1.3 mg/dL (0.7-1.3); EST CRCL DRUG DOSING (CG) 60.34 mL/min; ESTIMATED GFR 61.0 mL/min (>60); GLUCOSE RANDOM 129.0 mg/dL (70-99); POTASSIUM,K 2.9 mEq/L (3.5-5.1); PROTEIN TOTAL,TP 8.9 g/dl (6.4-8.2); SODIUM,NA 143.0 mEq/L (136-145); TROPONIN I HIGH SENSITIVITY 10.0 pg/mL (<=76)
== END 2024-12-12 11:31 | disposition home or self-care (01) ==
LOC: JD.ED 06:20
DX: I16.0 Hypertensive urgency (principal); E78.00 Pure hypercholesterolemia, unspecified; I10 Essential (primary) hypertension; Z79.82 Long term (current) use of aspirin; Z79.899 Other long term (current) drug therapy
CPT/HCPCS: 36415; 80053; 83735; 84132; 84484; 85025; 93005; 96374; 96375; 99284; A9270; J1920; J2060

== ENCOUNTER 2024-12-14 11:49 | Emergency (ER) | payer SELFPAY ==
[2024-12-14] MEDS: Sodium Chloride 0.9% 10 ML Syringe FLUSH PRN (12:30)
[2024-12-14 12:36] LABS: BASOPHILS ABSOLUTE AUTO 0.0 K/mm3 (0.0-0.2); BASOPHILS PERCENT AUTO 0.4 % (0.0-1.0); EOSINOPHILS ABSOLUTE AUTO 0.0 K/mm3 (0.0-0.4); EOSINOPHILS PERCENT AUTO 0.8 % (0.0-6.0); IMMATURE GRAN ABSOLUTE AUTO 0.01 K/mm3 (0.00-0.05); IMMATURE GRAN PERCENT AUTO 0.2 % (0.0-0.4); LYMPHOCYTES ABSOLUTE AUTO 2.7 K/mm3 (1.0-4.8); LYMPHOCYTES PERCENT AUTO 56.8 % (24.0-44.0); MEAN PLATELET VOLUME 9.8 fl (9.4-12.4); MONOCYTES ABSOLUTE AUTO 0.4 K/mm3 (0.0-0.8); MONOCYTES PERCENT AUTO 8.9 % (0.0-8.0); NEUTROPHILS ABSOLUTE AUTO 1.6 K/mm3 (1.8-7.7); NEUTROPHILS PERCENT AUTO 32.9 % (41.0-71.0); NRBC ABSOLUTE 0.00 (0.00-0.02); NRBC PERCENT 0.0 % (0.0-0.2); PLATELET COUNT,PLT 241 K/mm3 (150-400); RED BLOOD CELL COUNT 5.24 M/mm3 (4.52-5.90); WHITE BLOOD CELL COUNT,WBC 4.81 K/mm3 (3.9-11.3)
[2024-12-14 12:43] LABS: APPEARANCE,URINE CLEAR (Clear); GLUCOSE,URINE NEGATIVE (Negative); OCCULT BLOOD,URINE 1+ (Negative)
[2024-12-14 13:06] LABS: SQUAMOUS EPITHELIAL CELLS,UR 0-5 /hpf (0-5)
[2024-12-14 13:15] LABS: A/G RATIO 0.9 (1-2); ALANINE AMINOTRANSFERASE,ALT 25.0 U/L (16-63); ASPARTATE AMNIOTRANSFERASE,AST 28.0 U/L (15-37); BILIRUBIN TOTAL 0.7 mg/dL (0.2-1.0); BLOOD UREA NITROGEN,BUN 14.0 mg/dL (7-18); CARBON DIOXIDE,CO2 29.0 mEq/L (21-32); CHLORIDE,CL 105.0 mEq/L (98-107); CREATININE 1.3 mg/dL (0.7-1.3); EST CRCL DRUG DOSING (CG) 60.34 mL/min; ESTIMATED GFR 61.0 mL/min (>60); GLUCOSE RANDOM 102.0 mg/dL (70-99); POTASSIUM,K 4.2 mEq/L (3.5-5.1); PROTEIN TOTAL,TP 7.7 g/dl (6.4-8.2); SODIUM,NA 141.0 mEq/L (136-145); TROPONIN I HIGH SENSITIVITY 7.0 pg/mL (<=76)
== END 2024-12-14 14:15 | disposition home or self-care (01) ==
LOC: JD.ED 11:49
DX: I10 Essential (primary) hypertension (principal); E78.00 Pure hypercholesterolemia, unspecified; Z79.82 Long term (current) use of aspirin; Z79.899 Other long term (current) drug therapy; Z90.49 Acquired absence of other specified parts of digestive tract
CPT/HCPCS: 36415; 71045; 80053; 81001; 83735; 84484; 85025; 93005; 99284; A9270; 93010

== ENCOUNTER 2025-01-18 21:33 | Emergency (ER) | payer OTHER ==
[2025-01-18] MEDS ORDERED: Sodium Chloride 0.9% 10 ML Syringe FLUSH PRN (22:01)
[2025-01-18 22:29] LABS: APPEARANCE,URINE CLEAR (Clear); GLUCOSE,URINE NEGATIVE (Negative); OCCULT BLOOD,URINE 2+ (Negative)
[2025-01-18 22:45] LABS: BASOPHILS ABSOLUTE AUTO 0.0 K/mm3 (0.0-0.2); BASOPHILS PERCENT AUTO 0.6 % (0.0-1.0); EOSINOPHILS ABSOLUTE AUTO 0.0 K/mm3 (0.0-0.4); EOSINOPHILS PERCENT AUTO 0.6 % (0.0-6.0); IMMATURE GRAN ABSOLUTE AUTO 0.01 K/mm3 (0.00-0.05); IMMATURE GRAN PERCENT AUTO 0.2 % (0.0-0.4); LYMPHOCYTES ABSOLUTE AUTO 1.9 K/mm3 (1.0-4.8); LYMPHOCYTES PERCENT AUTO 41.0 % (24.0-44.0); MEAN PLATELET VOLUME 9.4 fl (9.4-12.4); MONOCYTES ABSOLUTE AUTO 0.4 K/mm3 (0.0-0.8); MONOCYTES PERCENT AUTO 8.3 % (0.0-8.0); NEUTROPHILS ABSOLUTE AUTO 2.3 K/mm3 (1.8-7.7); NEUTROPHILS PERCENT AUTO 49.3 % (41.0-71.0); NRBC ABSOLUTE 0.00 (0.00-0.02); NRBC PERCENT 0.0 % (0.0-0.2); PLATELET COUNT,PLT 242 K/mm3 (150-400); RED BLOOD CELL COUNT 4.92 M/mm3 (4.52-5.90); WHITE BLOOD CELL COUNT,WBC 4.68 K/mm3 (3.9-11.3)
[2025-01-18 23:04] LABS: EPITHELIAL CELLS,URINE NOT SEEN /hpf (0-5)
[2025-01-18 23:06] LABS: A/G RATIO 0.9 (1-2); ALANINE AMINOTRANSFERASE,ALT 23.0 U/L (16-63); ASPARTATE AMNIOTRANSFERASE,AST 18.0 U/L (15-37); BILIRUBIN TOTAL 0.5 mg/dL (0.2-1.0); BLOOD UREA NITROGEN,BUN 15.0 mg/dL (7-18); CARBON DIOXIDE,CO2 29.0 mEq/L (21-32); CHLORIDE,CL 104.0 mEq/L (98-107); CREATININE 1.3 mg/dL (0.7-1.3); EST CRCL DRUG DOSING (CG) 60.34 mL/min; ESTIMATED GFR 61.0 mL/min (>60); GLUCOSE RANDOM 117.0 mg/dL (70-99); POTASSIUM,K 3.2 mEq/L (3.5-5.1); PROTEIN TOTAL,TP 7.3 g/dl (6.4-8.2); SODIUM,NA 143.0 mEq/L (136-145)
== END 2025-01-18 23:48 | disposition home or self-care (01) ==
LOC: JD.ED 21:33
DX: I10 Essential (primary) hypertension (principal); E78.00 Pure hypercholesterolemia, unspecified; Z90.49 Acquired absence of other specified parts of digestive tract; Z79.899 Other long term (current) drug therapy
CPT/HCPCS: 36415; 80053; 81001; 83735; 85025; 93005; 93010; 99283